=== PATIENT | female | born 1960 | race Caucasian/White ===

== ENCOUNTER 2017-10-19 07:50 | Outpatient (CLI) | payer BC ==
--- NOTE | 2017-10-19 10:29 | CT ---
CT ABDOMEN AND PELVIS WITH ORAL AND IV CONTRAST: Date: 10/19/17 HISTORY: Submucosal lesion at the appendiceal orifice (ICD-10: K63.9). FINDINGS: The lung bases are clear. The liver, spleen, pancreas, adrenal glands, and kidneys are normal. No trev cified gallstones are seen. No free air, free fluid, or lymphadenopathy is seen in the abdomen or pel vis. The small bowel loops are not abnormally dilated. There is contrast in the loops of small bowel and t he colon, including the cecum. There is no contrast in the appendix, which is of normal caliber, with out periappendiceal inflammatory changes. There is no evidence of aneurysmal dilatation of the abdomi nal aorta. There are mild degenerative changes in the spine. The patient is post hysterectomy. IMPRESSION: No significant abnormalities are seen. POS: C
[2017-10-19] MEDS ORDERED: Iopamidol 370 76% 100 ML VIAL ONE (11:45)
== END 2017-10-19 07:51 | disposition home or self-care (01) ==
LOC: CT 07:50
PROVIDERS: ATTEND Internal Medicine Gastroenterology
DX: K38.8 Other specified diseases of appendix (principal)
CPT/HCPCS: 74177

== ENCOUNTER 2017-10-28 08:00 | Outpatient (CLI) | payer BC | END 2017-10-28 08:01 | disposition home or self-care (01) | LOC: BICMAMMO 08:00 | PROVIDERS: ATTEND Family Medicine | DX: Z13.820 Encounter for screening for osteoporosis (principal); M81.0 Age-related osteoporosis without current pathological fracture; M85.88 Other specified disorders of bone density and structure, other site | CPT/HCPCS: 77080 ==

== ENCOUNTER 2017-12-01 07:52 | Outpatient (CLI) | payer BC ==
[2017-12-01 10:12] LABS: #Basophils 0.1 thou/uL (0.0-0.2); #Eosinphils 0.1 thou/uL (0.0-0.7); #Lymphocytes 1.5 thou/uL (1.20-3.40); #Monocytes 0.4 thou/uL (0.11-0.59); #Neutrophils 3.2 thou/uL (1.40-6.50); %Basophils 1.2 % (0.0-1.0); %Eosinophils 2.3 % (0.0-10.0); %Monocytes 7.7 % (0.0-10.0); %Neutrophils 59.9 % (42.0-75.0); Mean Corpuscular HGB CONC 32.3 g/dL (32.0-36.0); Mean Corpuscular Hemoglobin 31.3 pg (27.0-31.0); Mean Corpuscular Volume 96.9 fl (81.0-99.0); Mean Platelet Volume 8.6 fL (7.4-10.4); Platelet Count 201 thou/uL (130-400); RBC Distribution Width 11.3 % (11.5-14.5); Red Blood Cell (RBC) Count 4.15 mill/uL (4.20-5.40); White Blood Cell (WBC) Count 5.3 thou/uL (4.8-10.8)
[2017-12-01 10:17] LABS: Hemoglobin A1c 5.2 % (4.0-6.0)
[2017-12-01 10:28] LABS: Anion Gap 12 mmol/L (10-20); BUN (Urea Nitrogen) 16 mg/dL (9.8-20.1); Calc. Creatinine Clearance 0 mL/min (70-130); Calcium 9.7 mg/dL (7.8-10.44); Carbon Dioxide 27 mmol/L (22-29); Chloride 107 mmol/L (98-107); Estimated GFR-MDRD 76; Glucose 62 mg/dL (70-105); Potassium 4.2 mmol/L (3.5-5.1); Sodium 142 mmol/L (136-145)
== END 2017-12-01 07:53 | disposition home or self-care (01) ==
LOC: LABBT 07:52
PROVIDERS: ATTEND Surgery
DX: Z01.810 Encounter for preprocedural cardiovascular examination (principal); Z01.812 Encounter for preprocedural laboratory examination; K38.9 Disease of appendix, unspecified
CPT/HCPCS: 80048; 83036; 85025; 93005; 93010

== ENCOUNTER 2017-12-09 11:03 | Outpatient (CLI) | payer BC | END 2017-12-09 11:04 | disposition home or self-care (01) | LOC: BICULT 11:03 | PROVIDERS: ATTEND Surgery | DX: R10.9 Unspecified abdominal pain (principal) | CPT/HCPCS: 76705 ==

== ENCOUNTER 2017-12-13 10:07 | Day surgery (SDC) | payer BC ==
[2017-12-01 08:24] VITALS: BMI 22.8
[2017-12-13] MEDS ORDERED: Ketorolac Tromethamine 30 MG/ML VIAL ONE (10:33)
[2017-12-13] MEDS ORDERED: Levofloxacin 500 mg/D5W 100 ml Premix Bag ONE (10:33)
[2017-12-13] MEDS ORDERED: Lidocaine 1% w/Epinephrine 1:200K 30 ML VIAL ONE (11:11)
[2017-12-13] MEDS ORDERED: Bupivacaine 0.25% HCL 30 ML VIAL ONE (11:11)
[2017-12-13] MEDS ORDERED: Midazolam HCl 2 mg/2 ml Vial ONE ×2 (11:28→11:52)
[2017-12-13] MEDS ORDERED: Fentanyl 100 MCG/2 ML VIAL ONE (11:28)
[2017-12-13] MEDS ORDERED: Ondansetron PF 4 MG/2 ML Vial ONE (12:15)
[2017-12-13] MEDS ORDERED: Dexamethasone 20 MG/5 ML VIAL ONE (12:15)
[2017-12-13] MEDS ORDERED: PROPOFOL 200 MG/20 ML VIAL ONE (12:15)
[2017-12-13] MEDS ORDERED: Glycopyrrolate 0.2 MG/ML 5 ML SYRINGE ONE (12:15)
[2017-12-13] MEDS ORDERED: Lidocaine 1% PF 5 ML VIAL ONE (12:15)
[2017-12-13] MEDS ORDERED: PHENYLEPHRINE-NS 100 MCG/ML 10 ML SYRINGE ONE (12:15)
[2017-12-13] MEDS ORDERED: HYDROcodone/Acetaminophen 5/325 mg Tablet ONE (15:23)
--- NOTE | 2017-12-17 11:22 | PDOC.OP ---
Operative Note - Operative Note Operative Note: PROCEDURE: Laparoscopic appendectomy SURGEON: Monica Delarosa M.D. DATE OF PROCEDURE:12/13/2017 PREOPERATIVE DIAGNOSIS: Submucosal mass at the base of the appendix POSTOPERATIVE DIAGNOSIS: Submucosal mass at the base of the appendix HISTORY: Patient recently had a screening colonoscopy and was found to have a 1 cm submucosal mass at base of the appendix. Biopsies were benign showing some lymphocytes. Excision for diagnosis was recommended. Her laryngologist was quite confident of the location of the mass as the appendiceal orifice was visible immediately adjacent. FINDINGS: 1 cm submucosal mass at the base of the appendix. DESCRIPTION OF PROCEDURE: After informed consent was obtained and appropriate antibiotics continued, the patient was taken to the operating room and placed in the supine position and general endotracheal anesthesia was administered. The bladder was decompressed with a Machado catheter and the abdomen was prepped and draped in the standard sterile fashion. Local anesthesia was infused to the skin and subcutaneous tissues superior to the umbilicus. A transverse skin incision was made and a Veress needle placed into the abdominal cavity and carbon dioxide gas insufflated without difficulty. Opening pressure was less than 5. Carbon dioxide gas was insufflated to an intra-abdominal pressure 15 and the patient tolerated this well. The Veress needle was withdrawn and a [place] port advanced under direct laparoscopic vision into the abdominal cavity. Two additional ports were placed in the suprapubic and left lateral abdomen under direct laparoscopic vision after local anesthesia was infused at these sites. The appendix was identified and appeared normal. The cecum was carefully examined and no visible masses were noted.. The appendix was grasped by the mesoappendix and elevated. Once the appendix was elevated a subtle bulge at the cecal cap at the base of the appendix was noted consistent with a submucosal mass noted endoscopically. The mesoappendix was then sequentially ligated and divided down to the base of the appendix, and an adequate distance confirms between the base of the appendix and the ileocecal valve to allow stapling across the cecal cap at the base of the appendix.. An endoscopic stapler was placed across the cecal cap at the base of the appendix and fired. The appendix was placed into an EndoCatch bag and drawn out through the suprapubic incision. The staple line was carefully examined and was intact without bleeding. The suprapubic trocar was then replaced and the operative site was easily irrigated to clear. The suprapubic trocar was removed and the fascia closed under direct laparoscopic vision with a 0 Vicryl suture on a GraNee needle with excellent technical result. The left lateral trocar was then removed and hemostasis verified. Carbon dioxide gas was desufflated through the umbilical trocar which was then removed. Due to the patient's thin body habitus the fascia was visible at the umbilicus and was reapproximated with a UR 6-0 Vicryl suture under direct vision with good result. The skin incisions were irrigated and additional local anesthesia infused at each site. The skin was closed with 4-0 subcuticular Monocryl sutures and Dermabond dressings were placed. The patient was extubated and taken to the recovery room in good condition. Estimated blood loss was minimal. There were no complications. SPECIMEN: Appendix. This was examined on the back table after incising the staple line and a 1 cm submucosal mass immediately adjacent to the appendiceal orifice was noted, consistent with the endoscopic findings.
== END 2017-12-13 17:19 | disposition home or self-care (01) ==
LOC: SDC 10:07
PROVIDERS: ATTEND Surgery
PROC: 0DTJ4ZZ Resection of Appendix, Percutaneous Endoscopic Approach (ICD-10-PCS; principal; 2017-12-13)
DX: K38.0 Hyperplasia of appendix (principal); M81.0 Age-related osteoporosis without current pathological fracture; E78.5 Hyperlipidemia, unspecified; N95.2 Postmenopausal atrophic vaginitis; J30.2 Other seasonal allergic rhinitis; Z79.1 Long term (current) use of non-steroidal anti-inflammatories (NSAID); Z79.810 Long term (current) use of selective estrogen receptor modulators (SERMs); Z79.899 Other long term (current) drug therapy; Z88.0 Allergy status to penicillin; Z88.8 Allergy status to other drugs, medicaments and biological substances; Z90.710 Acquired absence of both cervix and uterus; Z98.890 Other specified postprocedural states
CPT/HCPCS: 88304; J0131; J1100; J1885; J1956; J2001; J2250; J2405; J2704; J3010; S0020

== ENCOUNTER 2018-10-03 15:50 | Outpatient (CLI) | payer BC | END 2018-10-03 15:51 | disposition home or self-care (01) | LOC: BICMAMMO 15:50 | PROVIDERS: ATTEND Obstetrics & Gynecology | DX: Z12.31 Encounter for screening mammogram for malignant neoplasm of breast (principal); Z80.3 Family history of malignant neoplasm of breast | CPT/HCPCS: 77063; 77067 ==

== ENCOUNTER 2019-01-16 15:24 | Outpatient (CLI) | payer BC ==
--- NOTE | 2019-01-16 17:02 | BD ---
BONE DENSITOMETRY: DATE: 01/16/19 HISTORY: 58-year-old female for postmenopausal osteoporosis screening. FINDINGS: Lumbar Spine: BMD (g/cm2) L1 0.851 T-Score: -1.3 L2 0.925 T-Score: -0.9 L3 0.831 T-Score: -2.3 L4 0.802 T-Score: -2.4 L1-L4 0.848 T-Score: -1.8 The lumbar spine density from 10/28/17 was recorded at 0.817. The lumbar spine density from 08/26/16 was recorded at 0.840. Femoral Neck: 0.507 T-Score: -3.1 Total Femur: 0.693 T-Score: -2.0 The femoral neck density from 10/28/17 was recorded at 0.530. The femoral neck density from 08/26/16 was recorded at 0.545. IMPRESSION: 1. Bone mineral density of the femoral neck indicates osteoporosis. 2. Bone mineral density of the lumbar spine indicates osteopenia. POS: DIANE
== END 2019-01-16 15:25 | disposition home or self-care (01) ==
LOC: BICMAMMO 15:24
PROVIDERS: ATTEND Internal Medicine Rheumatology
DX: M81.0 Age-related osteoporosis without current pathological fracture (principal); M85.89 Other specified disorders of bone density and structure, multiple sites
CPT/HCPCS: 77080

== ENCOUNTER 2019-04-11 07:27 | Outpatient (CLI) | payer BC ==
--- NOTE | 2019-04-11 07:56 | ULT ---
Sonogram abdomen complete HISTORY: Upper abdomen pain. FINDINGS: The gallbladder has a normal appearance without evidence of stones. Common duct is 0.3 cm. Liver has a normal appearance without focal mass or intrahepatic biliary dilatation. No free fluid. The spleen, kidneys, and visualized portions of abdominal aorta, IVC, and pancreas are within normal limits. IMPRESSION: Normal abdominal sonogram.
--- NOTE | 2019-04-11 08:15 | ULT ---
Pelvic sonogram transabdominal imaging with duplex evaluation HISTORY: Pelvic pain. FINDINGS: Urinary bladder incompletely distended. Uterus is surgically absent. No free fluid is evide nt within the pelvis. The right ovary is 2.0 cm and the left is 2.5 cm. Each has a normal sonographic appearance and demons trates good color and spectral Doppler flow. IMPRESSION: Status post hysterectomy. No significant abnormalities are demonstrated.
== END 2019-04-11 07:28 | disposition home or self-care (01) ==
LOC: BICULT 07:27
PROVIDERS: ATTEND Family Medicine
DX: R10.9 Unspecified abdominal pain (principal); Z90.710 Acquired absence of both cervix and uterus
CPT/HCPCS: 76700; 76856; 93976

== ENCOUNTER 2019-11-23 15:50 | Outpatient (CLI) | payer BC ==
--- NOTE | 2019-11-23 16:59 | MMO ---
Bilateral MAMMO Bilat Screen [facility]. CLINICAL HISTORY: Patient is 59 years old and is seen for screening. VIEWS: The views performed were: . FILMS COMPARED: The present examination has been compared to prior imaging studies performed at [facility] on 08/07/2015, 08/26/2016, 09/16/2017 and 10/03/2018. This study has been interpreted with the assistance of computer-aided detection. MAMMOGRAM FINDINGS: The breasts are heterogeneously dense, which could obscure a lesion on mammography. Finding 1: There are stable benign appearing calcifications seen in both breasts. Finding 2: There are stable benign appearing densities seen in both breasts. There are no suspicious masses, suspicious calcifications, or new areas of architectural distortion. IMPRESSION: THERE IS NO MAMMOGRAPHIC EVIDENCE OF MALIGNANCY. A ROUTINE FOLLOW-UP MAMMOGRAM IN 1 YEAR IS RECOMMENDED. THE RESULTS OF THIS EXAM WERE SENT TO THE PATIENT. ACR BI-RADS Category 2 - Benign finding MAMMOGRAPHY NOTE: 1. A negative mammogram report should not delay a biopsy if a dominant of clinically suspicious mass is present. 2. Approximately 10% to 15% of breast cancers are not detected by mammography. 3. Adenosis and dense breasts may obscure an underlying neoplasm. Reported by: MARY JO THOMAS MD Electonically Signed: [id number]
== END 2019-11-23 15:51 | disposition home or self-care (01) ==
LOC: BICMAMMO 15:50
PROVIDERS: ATTEND Family Medicine
DX: Z12.31 Encounter for screening mammogram for malignant neoplasm of breast (principal)
CPT/HCPCS: 77063; 77067

== ENCOUNTER 2020-03-18 15:16 | Outpatient (CLI) | payer BC ==
--- NOTE | 2020-03-18 15:43 | BD ---
BONE DENSITOMETRY USING DEXA: HISTORY: Osteoporosis. FINDINGS: Lumbar Spine: BMD (g/cm2) L1 0.889 T-Score: -0.9 Z-Score: 0.4 L2 0.905 T-Score: -1.1 Z-Score: 0.4 L3 0.834 T-Score: -2.3 Z-Score: -0.7 L4 0.781 T-Score: -2.5 Z-Score: -0.9 L1-L4 0.847 T-Score: -1.8 Z-Score: -0.3 Femoral Neck: 0.519 T-Score: -3.0 Z-Score: -1.6 Total Femur: 0.691 T-Score: -2.1 Z-score: -1.0 There has been interval reduction of 0.1% in the BMD of the lumbar spine and a reduction of 0.3% in t he BMD of the proximal femur since 01/16/2019. Impression: Osteoporosis. POS: VINAY
== END 2020-03-18 15:17 | disposition home or self-care (01) ==
LOC: BICMAMMO 15:16
PROVIDERS: ATTEND Internal Medicine Rheumatology
DX: M81.0 Age-related osteoporosis without current pathological fracture (principal)
CPT/HCPCS: 77080

== ENCOUNTER 2021-01-22 11:44 | Outpatient (CLI) | payer BC | END 2021-01-22 11:45 | disposition home or self-care (01) | LOC: BICRAD 11:44 | PROVIDERS: ATTEND Family Medicine | DX: M47.22 Other spondylosis with radiculopathy, cervical region (principal) | CPT/HCPCS: 72040 ==

== ENCOUNTER 2021-03-06 15:27 | Outpatient (CLI) | payer BC | END 2021-03-06 15:28 | disposition home or self-care (01) | LOC: BICMAMMO 15:27 | PROVIDERS: ATTEND Obstetrics & Gynecology | DX: Z12.31 Encounter for screening mammogram for malignant neoplasm of breast (principal); Z80.3 Family history of malignant neoplasm of breast | CPT/HCPCS: 77063; 77067 ==

== ENCOUNTER 2022-03-09 13:39 | Outpatient (CLI) | payer BC | END 2022-03-09 13:40 | disposition home or self-care (01) | LOC: BICMAMMO 13:39 | PROVIDERS: ATTEND Nurse Practitioner Family | DX: Z12.31 Encounter for screening mammogram for malignant neoplasm of breast (principal); M81.0 Age-related osteoporosis without current pathological fracture; M85.851 Other specified disorders of bone density and structure, right thigh; Z80.3 Family history of malignant neoplasm of breast | CPT/HCPCS: 77063; 77067; 77080 ==

== ENCOUNTER 2023-04-21 10:49 | Outpatient (CLI) | payer BC | END 2023-04-21 10:50 | disposition home or self-care (01) | LOC: BICMAMMO 10:49 | PROVIDERS: ATTEND Internal Medicine Rheumatology | DX: M81.0 Age-related osteoporosis without current pathological fracture (principal) | CPT/HCPCS: 77080 ==

== ENCOUNTER 2024-05-30 07:48 | Outpatient (CLI) | payer MEDICARE | END 2024-05-30 07:49 | disposition home or self-care (01) | LOC: BICMAMMO 07:48 | PROVIDERS: ATTEND Internal Medicine Rheumatology | DX: Z12.31 Encounter for screening mammogram for malignant neoplasm of breast (principal); M81.0 Age-related osteoporosis without current pathological fracture; M85.89 Other specified disorders of bone density and structure, multiple sites; Z80.3 Family history of malignant neoplasm of breast | CPT/HCPCS: 77063; 77067; 77080 ==